=== PATIENT | male | born 2000 | race American Indian/Alaskan Native ===

== ENCOUNTER 2020-12-24 10:16 | Emergency (ER) | payer SELFPAY ==
[2020-12-24 10:36] VITALS: BP 145/84
--- NOTE | 2020-12-24 11:17 | XRay Report ---
CHEST 2 VIEWS INDICATION / CLINICAL INFORMATION: chest tightness. Vomiting and chest pain since this morning. COMPARISON: None available. FINDINGS: SUPPORT DEVICES: None. HEART / MEDIASTINUM: No significant abnormality. LUNGS / PLEURA: No significant pulmonary or pleural abnormality. No pneumothorax. ADDITIONAL FINDINGS: No significant additional findings. IMPRESSION: 1. No acute findings. Signer Name: Alex Biggs MD Signed: 12/24/2020 11:13 AM Workstation Name: [email or web address]
[2020-12-24] MEDS ORDERED: ONDANSETRON 4 MG ODT TAB PO ONE (11:28)
--- NOTE | 2020-12-24 11:31 | Event Note ---
ED Screening Note Date of service: 12/24/20 Time: 11:29 ED Screening Note: 20-year-old -[place] male presents to the emergency room stating he started having nausea vomiting chest pain midsternal shortness of breath at approximately 6 AM. Patient states he has had intermittent cough denies any sore throat but does admit to runny nose. Patient denies any alcohol use does admit to marijuana use. States is possible food poison patient denies any past medical history currently takes no meds on a daily basis. Patient is not vaccinated. This initial assessment/diagnostic orders/clinical plan/treatment(s) is/are subject to change based on patients health status, clinical progression and re- assessment by fellow clinical providers in the ED. Further treatment and workup at subsequent clinical providers discretion. Patient/guardian urged not to elope from the ED as their condition may be serious if not clinically assessed and managed. Initial orders include: CBC CMP chest x-ray EKG Zofran 4 mg ODT.
[2020-12-24 12:33] LABS: Basophils % (Auto) 0.4 % (0.0-1.8); Eosinophils % (Auto) 0.5 % (0.0-4.3); Hematocrit 43.7 % (35.5-45.6); Hemoglobin 14.4 gm/dl (11.8-15.2); Lymphocytes # (Auto) 1.2 K/mm3 (1.2-5.4); Lymphocytes % (Auto) 11.1 % (13.4-35.0); Mean Corpuscular HGB Conc 33 % (32-34); Mean Corpuscular Volume 84 fl (84-94); Monocytes # (Auto) 0.6 K/mm3 (0.0-0.8); Monocytes % (Auto) 5.4 % (0.0-7.3); Platelet Count 323 K/mm3 (140-440); Red Blood Count 5.21 M/mm3 (3.65-5.03); Red Cell Distribution Width 13.9 % (13.2-15.2)
[2020-12-24 12:48] LABS: Alanine Aminotransferase 14 units/L (7-56); Albumin 5.1 g/dL (3.9-5); BUN/Creatinine Ratio 8; Blood Urea Nitrogen 6 mg/dL (9-20); Calcium 10.6 mg/dL (8.4-10.2); Hemolysis Index 5
--- NOTE | 2020-12-24 13:27 | Emergency Department Report ---
ED General Adult HPI - General Chief complaint: Chest Pain Stated complaint: CP/SOB/ Source: patient Mode of arrival: Wheelchair Limitations: No Limitations - History of Present Illness Initial comments: 20-year-old -Citizen Of [place] male presents to the emergency room stating he started having nausea vomiting chest pain midsternal shortness of breath at approximately 6 AM. Patient states he has had intermittent cough denies any sore throat but does admit to runny nose. Patient denies any alcohol use does admit to marijuana use every day. States is possible food poison patient denies any past medical history currently takes no meds on a daily basis. Patient is not vaccinated. -: This morning Time: 04:00 - Related Data Allergies Allergy/AdvReac Type Severity Reaction Status Date / Time No Known Allergies Allergy Unverified 12/24/20 10:33 ED Review of Systems ROS: Stated complaint: CP/SOB/ Other details as noted in HPI ED Past Medical Hx - Past Medical History Previous Medical History?: No - Surgical History Past Surgical History?: No ED Physical Exam - General Limitations: No Limitations General appearance: alert, in no apparent distress - Head Head exam: Present: atraumatic, normocephalic - Eye Eye exam: Present: normal appearance - ENT ENT exam: Present: mucous membranes moist, normal external ear exam - Neck Neck exam: Present: normal inspection, full ROM - Respiratory Respiratory exam: Present: normal lung sounds bilaterally. Absent: accessory muscle use - Cardiovascular Cardiovascular Exam: Present: regular rate - GI/Abdominal GI/Abdominal exam: Present: soft. Absent: distended - Extremities Exam Extremities exam: Present: normal inspection, full ROM - Back Exam Back exam: Present: normal inspection - Neurological Exam Neurological exam: Present: alert, oriented X3, normal gait - Psychiatric Psychiatric exam: Present: normal affect, normal mood - Skin Skin exam: Present: warm, dry, intact, normal color. Absent: rash ED Course Vital Signs 12/24/20 10:35 Temperature 98.2 F Pulse Rate 100 H Respiratory 22 Rate Blood Pressure 145/84 O2 Sat by Pulse 100 Oximetry ED Medical Decision Making - Lab Data Result diagrams: 12/24/20 12:13 12/24/20 12:13 - Radiology Data Radiology results: report reviewed [facility] [address] [place] [address] XRay Report Signed Patient: SYDNI SALEEM MR#: [id number] : 2000 Acct:[id number] Age/Sex: 20 / M ADM Date: 12/24/20 Loc: ED Attending Dr: Ordering Physician: TOYIN TRAYLOR MD Date of Service: 12/24/20 Procedure(s): XR chest routine 2V Accession Number(s): [id number] cc: ED MD KYMBERLY Fluoro Time In Minutes: CHEST 2 VIEWS INDICATION / CLINICAL INFORMATION: chest tightness. Vomiting and chest pain since this morning. COMPARISON: None available. FINDINGS: SUPPORT DEVICES: None. HEART / MEDIASTINUM: No significant abnormality. LUNGS / PLEURA: No significant pulmonary or pleural abnormality. No pneumothorax. ADDITIONAL FINDINGS: No significant additional findings. IMPRESSION: 1. No acute findings. Signer Name: Alex Biggs MD Signed: 12/24/2020 11:13 AM Workstation Name: [id number] Transcribed By: DT Dictated By: Lawrence Biggs MD Electronically Authenticated By: Lawrence Biggs MD Signed Date/Time: 12/24/20 1113 DD/ 1112 TD/TT: Print Cancel - Medical Decision Making 20-year-old -Citizen Of [place] male presents to the emergency room stating he started having nausea vomiting chest pain midsternal shortness of breath at approximately 6 AM. Patient states he has had intermittent cough denies any sore throat but does admit to runny nose. Patient denies any alcohol use does admit to marijuana use every day. States is possible food poison patient denies any past medical history currently takes no meds on a daily basis. Patient is not vaccinated. CBC CMP lipase chest x-ray ordered. Zofran ordered Patient was not able to be located to give Zofran. Patient appears to have eloped. Critical care attestation.: If time is entered above; I have spent that time in minutes in the direct care of this critically ill patient, excluding procedure time. ED Disposition Clinical Impression: Nausea and vomiting Disposition: LEFT AWOL/ELOPED Is pt being admited?: No Does the pt Need Aspirin: No Condition: Stable Referrals: PRIMARY CARE, [Primary Care Provider] - 3-5 Days
--- NOTE | 2020-12-27 14:07 | Electrocardiograph Report ---
[facility] Test Date: 2020-12-24 Test Time: 10:41:55 Pat Name: SYDNI SALEEM Department: Room: Gender: M [employer]: GUI : 2000 Requested By: ED DOC Order Number: [id number] Reading MD: Abigail Kirkland Measurements Intervals [place] Rate: 89 P: 46 MA: 140 QRS: 72 QRSD: 89 T: -2 QT: 366 QTc: 445 Interpretive Statements Sinus rhythm interspersed with a short burst of PAT Nonspecific ST segment abnormality No previous ECG available for comparison Electronically Signed On 12-27-2020 14:06:51 EDT by Abigail Kirkland
== END 2020-12-26 15:00 | disposition left against medical advice (07) ==
LOC: ED 10:16
DX: R11.2 Nausea with vomiting, unspecified (principal)
CPT/HCPCS: 36415; 71046; 80053; 83690; 85025; 93005